=== PATIENT | male | born 1980 ===

== ENCOUNTER 2020-10-30 06:30 | Day surgery (SDC) | payer OTHER | END 2020-10-30 11:00 | disposition home or self-care (01) | LOC: AMB-ENDOS 06:30 | PROVIDERS: ATTEND Colon & Rectal Surgery | DX: K62.89 Other specified diseases of anus and rectum (principal); K52.89 Other specified noninfective gastroenteritis and colitis; Z12.11 Encounter for screening for malignant neoplasm of colon; Z20.828 Contact with and (suspected) exposure to other viral communicable diseases ==

== ENCOUNTER 2021-04-24 09:42 | Emergency (ER) | payer OTHER ==
[~2021-04-24] VITALS: Ht 182.9 cm; Wt 88.5 kg
== END 2021-04-24 15:20 | disposition home or self-care (01) ==
LOC: ER 09:42
DX: K52.9 Noninfective gastroenteritis and colitis, unspecified (principal)